=== PATIENT | female | born 1965 | race Caucasian/White ===

== ENCOUNTER → 2018-07-08 | Outpatient (CLI) | payer BC ==
--- NOTE | 2018-07-08 16:18 | US ---
EXAM DESCRIPTION: Abdomen,Complete: Ultrasound. CLINICAL HISTORY: M51.27 M54.5 COMPARISON: None Available. TECHNIQUE: Transabdominal scannin-dimensional and Doppler modes. FINDINGS: Gallbladder: Multiple echogenic gallstones with acoustic shadowing. No wall thickening measuring 1.1 mm. No fluid around the wall. Tenderness with transducer pressure over the region. Common bile duct: 3.3 mm is normal caliber. Liver: 12.4 cm right lobe long axis. Normal caliber of the intrahepatic biliary ducts. Normal echogenicity with smooth capsule and no ascites. Normal vascularity in the portal and hepatic veins. Pancreas: Included segments with normal echogenicity. Duct not seen.. Abdominal aorta: Normal caliber from the proximal segment to the distal bifurcation. IVC: visualized; normal caliber. Spleen normal echogenicity; long axis measurement is 11.1 cm. Right kidney: Long axis is 10.9 cm. Normal cortical thickness and echogenicity. No hydronephrosis or perinephric fluid. Normal vascularity. Left kidney: 8.8 cm long axis. Minimal cortical thinning with normal echogenicity. No hydronephrosis or perinephric fluid. Normal vascularity. IMPRESSION: 1. Cholelithiasis of the gallbladder with normal wall thickness. However tenderness with transducer pressure suggest cholecystitis. No surrounding fluid. Normal caliber of the common bile duct. 2.. Liver, pancreas, right kidney, and spleen unremarkable. 3. Normal caliber of the proximal abdominal aorta and IVC. . Minimal cortical thinning of the left kidney otherwise unremarkable. Electronically signed by: Ok Gonzalez MD 07/08/2018 4:14 PM CDT
== END ==
LOC: US 14:49
PROVIDERS: ATTEND Family Medicine
DX: K80.20 Calculus of gallbladder without cholecystitis without obstruction (principal)

== ENCOUNTER → 2019-01-09 | Outpatient (CLI) | payer BC | LOC: GMAE 10:51 | PROVIDERS: ATTEND Family Medicine | DX: Z00.00 Encounter for general adult medical examination without abnormal findings (principal); R07.2 Precordial pain ==

== ENCOUNTER → 2020-01-27 | Outpatient (CLI) | payer BC | LOC: GMAE 10:40 | PROVIDERS: ATTEND Family Medicine | DX: Z00.00 Encounter for general adult medical examination without abnormal findings (principal) ==